=== PATIENT | female | born 1965 | race Hispanic/Latino ===

== ENCOUNTER 2017-07-28 14:47 | Outpatient (CLI) | payer BC ==
--- NOTE | 2017-07-28 16:14 | MRI ---
MR ANGIOGRAM OF THE HEAD: 07/28/17 HISTORY: Migraine headaches, history of aneurysm coiling. TECHNIQUE: Routine noncontrast enhanced 3D [id number] MR angiography of the brain obtained. FINDINGS: This study has been compared to prior CT angiograms of the head performed 12/12/12 and 03/28/13. The distal aspect of bilateral vertebral arteries demonstrates antegrade blood flow. The right verteb ral artery ends in PICA. The basilar artery is tortuous. The M1 segment on the right is nonvisualized with a origin of the right posterior cerebral artery. Bilateral posterior cerebral arteries ar e patent and there is no evidence for hemodynamically significant stenosis, vascular occlusion or sac cular aneurysm within the posterior circulation. Decreased signal intensity is seen in the supraclinoid region on the right, on the basis of coil embo lization within the dome of a previously noted bilobed ACOM aneurysm, best seen on the 12/12/12 exam. T he portion of the aneurysm at the level of the dome contains the coil embolization and demonstrates n o evidence for blood flow. However, the lobe most proximal to the parent vessel, the anterior communi cating artery, demonstrates evidence of internal flow. The patent portion of the anterior communicati ng artery aneurysm on today's exam measures 7 x 8 mm, which does not appear significantly changed whe n compared to the CT angiogram of the head performed 03/28/13. This aneurysm appears to involve the b ilateral A1 and A2 segments. The exact configuration in this region would be better assessed via CTA. The A1 segment is hypoplastic. The MCA bifurcation and M1 segment is patent bilaterally. Distal MCA and ALMA branches appear intact. 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 There is a coil embolizati on mass within the aneurysm dome with a patent aneurysm component measuring 7 x 8 mm. The exact confi guration and size could be most accurately assessed with repeat CT angiogram of the head. POS: [facility]
== END 2017-07-28 14:48 | disposition home or self-care (01) ==
LOC: TBSIIMAG 14:47
PROVIDERS: ATTEND Neurological Surgery
DX: I67.1 Cerebral aneurysm, nonruptured (principal)
CPT/HCPCS: 70544

== ENCOUNTER 2017-08-31 05:53 | Day surgery (SDC) | payer BC ==
[2017-08-30 10:00] VITALS: BMI 33.0
[2017-08-31 06:43] LABS: Anion Gap 14 mmol/L (10-20); BUN (Urea Nitrogen) 14 mg/dL (9.8-20.1); Calc. Creatinine Clearance 140 mL/min (70-130); Calcium 9.1 mg/dL (7.8-10.44); Carbon Dioxide 26 mmol/L (22-29); Chloride 104 mmol/L (98-107); Estimated GFR-MDRD 88; Glucose 110 mg/dL (70-105); Potassium 3.9 mmol/L (3.5-5.1); Sodium 140 mmol/L (136-145)
[2017-08-31] MEDS ORDERED: Heparin 10,000 UNITS/1 ML VIAL ONE (07:22)
[2017-08-31] MEDS ORDERED: Lidocaine 1% (PF) 30 ML VIAL ONE (07:23)
[2017-08-31] MEDS ORDERED: Iopamidol 370 76% 100 ML VIAL ONE (10:15)
--- NOTE | 2017-09-02 15:14 | CCL ---
RADIOLOGY PROCEDURE NOTE: Date: 08/31/17 SURGEON: David Arshad M.D. ROLLER PNEUMATIC: None. INDICATION: History of prior aneurysmal subarachnoid hemorrhage. PROCEDURE: Cerebral angiography. ANESTHESIA: Local. TECHNIQUE: The patient was brought into the angiogram suite and placed on the table in the supine position. Both groins were prepped and draped in the usual sterile fashion. 1% lidocaine was injected into the righ t groin area. A 5 Norwegian Micropuncture set was then used to gain access to the right common femoral a rtery. Using the Seldinger technique, the needle was removed and a 5 Norwegian sheath was placed. A 5 Fr Arachnys diagnostic catheter passed over a Endymed guidewire and was then advanced into the aortic arch w here the left internal carotid artery was selectively catheterized. An AP and lateral angiogram was p erformed. All catheters were then removed. Hemostasis was maintained with manual compression. The pro cedure came to an end without complication. IMPRESSION: The patient underwent successful angiography of the left internal carotid artery. The angiogram revea led the presence of a previously coiled anterior communicating artery region aneurysm. The dome of th e aneurysm remains completely coiled without filling. There is a broad based neck which does fill as suggested on noninvasive imaging performed prior to the day of this procedure. The filling portion me asures approximately 4 x 5 mm. I do not believe this is amenable to endovascular treatment.
== END 2017-08-31 11:35 | disposition home or self-care (01) ==
LOC: CCL 05:53
PROVIDERS: ATTEND Neurological Surgery
PROC: B307ZZZ Plain Radiography of Left Internal Carotid Artery (ICD-10-PCS; principal; 2017-08-31)
DX: I67.1 Cerebral aneurysm, nonruptured (principal); F32.9 Major depressive disorder, single episode, unspecified; Z79.899 Other long term (current) drug therapy
CPT/HCPCS: 36216; 80048; J1644; J2001